=== PATIENT | female | born 1965 | race Caucasian/White ===

== ENCOUNTER 2018-07-11 08:37 | Outpatient (CLI) | payer BC, OTHER ==
[2018-07-11] MEDS ORDERED: IOPAMIDOL-300 100 ML VIAL ONE (08:40)
[2018-07-11 10:59] LABS: CREATININE 0.6 mg/dL (0.4-1.0)
[2018-07-11] MEDS ORDERED: IOPAMIDOL-300 100 ML VIAL IVP ONE (11:43)
--- NOTE | 2018-07-11 14:44 | CT Report ---
Reason: RENAL COLIC Procedure Date: 07/11/2018 Accession Number: [id number] / [id number] Procedure: CT - IVP CPT Code: FULL RESULT: EXAM: CT ABDOMEN AND PELVIS WITHOUT AND WITH CONTRAST (CT IVP) EXAM DATE: 07/11/2018 11:39 AM. CLINICAL HISTORY: RENAL COLIC. COMPARISONS: None. TECHNIQUE: Routine helical imaging was performed through the kidneys, ureters and bladder in the precontrast, postcontrast and delayed phase. IV Contrast: Isovue 300, 100 mL. Reconstructions: Coronal and sagittal. In accordance with CT protocol optimization, one or more of the following dose reduction techniques were utilized for this exam: automated exposure control, adjustment of mA and/or KV based on patient size, or use of iterative reconstructive technique. FINDINGS: Lung Bases: Unremarkable. Right Kidney/Ureter: No stones, hydronephrosis, or masses. Left Kidney/Ureter: No stones, hydronephrosis, or masses. Other Solid Organs: The liver, spleen, pancreas, gallbladder, and adrenal glands are unremarkable.The bile ducts are unremarkable. Peritoneal Cavity/Bowel: No free fluid, free air or adenopathy. No masses. No evidence for small bowel obstruction. Normal appearing appendix. Colonic diverticulosis without evidence for acute diverticulitis. Pelvic Organs: No bladder stones, obstruction or masses. The visualized pelvic organs are unremarkable. Vasculature: Normal. Bones: Normal. Other: None. IMPRESSION: Normal CT IVP. No urinary tract masses, stones or obstruction. RADIA
== END 2018-07-11 08:38 | disposition home or self-care (01) ==
LOC: DI 08:37
PROVIDERS: ATTEND Family Medicine
DX: N23 Unspecified renal colic (principal)
CPT/HCPCS: 36415; 74178; 82565; Q9967

== ENCOUNTER 2018-09-11 07:58 | Outpatient (CLI) | payer OTHER ==
--- NOTE | 2018-09-23 10:19 | Mammography Report ---
Reason: SCREENING MAMMO Procedure Date: 09/11/2018 Accession Number: [id number] / [id number] Procedure: JOSE G - Screening Mammo w/Guillaume CPT Code: FULL RESULT: EXAM: Screening Mammo w/Guillaume DATE: 09/11/2018 8:51 AM CLINICAL HISTORY: 53 year-old nulliparous female with history of early menses presents for screening. TECHNIQUE: Bilateral CC and MLO views were obtained. COMPARISON: 09/26/2014. FINDINGS: The breasts demonstrate scattered fibroglandular densities bilaterally. An isodense nodule in the upper posterior right breast is stable dating back to 2013, no associated architectural distortion or calcifications, typically benign. No suspicious masses, clustered microcalcifications, or regions of architectural distortion are identified. IMPRESSION: Benign findings RECOMMENDATION: Routine annual screening unless otherwise clinically indicated. BIRADS CATEGORY 2: Benign findings STANDARD QUALIFYING STATEMENTS: 1. This examination was not reviewed with the aid of Computer-Aided Detection (CAD). 2. A negative or benign imaging report should not delay biopsy if clinically suspicious findings are present. Consider surgical consultation if warranted. More than 5% of cancers are not identified by imaging. 3. Dense breasts may obscure an underlying neoplasm. 4. This examination was reviewed with the aid of 3D breast imaging (tomosynthesis).
== END 2018-09-11 07:59 | disposition home or self-care (01) ==
LOC: DI 07:58
DX: Z12.31 Encounter for screening mammogram for malignant neoplasm of breast (principal)
CPT/HCPCS: 77063; 77067

== ENCOUNTER 2018-11-23 10:05 | Emergency (ER) | payer OTHER ==
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
[2018-11-23 11:16] LABS: BASOPHILS # (AUTO) 0.1 10^3/uL (0.0-0.1); BASOPHILS % (AUTO) 1.2 %; EOSINOPHILS # (AUTO) 0.1 10^3/uL (0.0-0.7); EOSINOPHILS % (AUTO) 0.9 %; HGB - HEMOGLOBIN 14.2 g/dL (12.0-16.0); LYMPHOCYTES # (AUTO) 2.1 10^3/uL (1.5-3.5); LYMPHOCYTES % (AUTO) 26.3 %; MEAN CORPUSCULAR HEMOGLOBIN 27.5 pg (27.0-31.0); MEAN CORPUSCULAR HGB CONC 33.8 g/dL (32.0-36.0); MEAN CORPUSCULAR VOLUME 81.4 fL (81.0-99.0); MEAN PLATELET VOLUME 8.3 fL (7.9-10.8); MONOCYTES # (AUTO) 0.5 10^3/uL (0.0-1.0); MONOCYTES % (AUTO) 6.3 %; NEUTROPHILS # (AUTO) 5.2 10^3/uL (1.5-6.6); NEUTROPHILS % (AUTO) 65.3 %; PLT - PLATELET COUNT 286 10^3/uL (130-450); RED BLOOD COUNT 5.18 10^6/uL (4.20-5.40); RED CELL DISTRIBUTION WIDTH 16.8 % (12.0-15.0)
[2018-11-23 11:21] LABS: BILIRUBIN,URINE NEGATIVE (NEGATIVE); GLUCOSE, URINE (UA) NEGATIVE (NEGATIVE); KETONES,URINE (UA) NEGATIVE (NEGATIVE); LEUKOCYTE ESTERASE, URINE NEGATIVE (NEGATIVE); NITRITE,URINE NEGATIVE (NEGATIVE); OCCULT BLOOD,URINE TRACE-INTA (NEGATIVE); PROTEIN,URINE NEGATIVE (NEGATIVE); UROBILINOGEN,URINE 0.2 (NORMAL) E.U./dL (NORMAL)
[2018-11-23 11:26] LABS: CLARITY,URINE CLEAR (CLEAR)
[2018-11-23 11:29] LABS: ALBUMIN 4.2 g/dL (3.2-5.5); ALBUMIN/GLOBULIN RATIO 1.4 (1.0-2.2); BILIRUBIN,TOTAL 0.5 mg/dL (0.2-1.0); CALCIUM 9.2 mg/dL (8.5-10.3); CREATININE 0.7 mg/dL (0.4-1.0); TOTAL PROTEIN 7.3 g/dL (6.7-8.2)
--- NOTE | 2018-11-23 11:48 | CT Report ---
Reason: vision changes right hemicranial pain Procedure Date: 11/23/2018 Accession Number: [id number] / [id number] Procedure: CT - Head W/O CPT Code: FULL RESULT: EXAM: CT HEAD EXAM DATE: 11/23/2018 11:34 AM. CLINICAL HISTORY: Vision changes right hemicranial pain. COMPARISON: None. TECHNIQUE: Multiaxial CT images were obtained from the foramen magnum to the vertex. Reformats: Sagittal and coronal. IV contrast: None. In accordance with CT protocol optimization, one or more of the following dose reduction techniques were utilized for this exam: automated exposure control, adjustment of mA and/or KV based on patient size, or use of iterative reconstructive technique. FINDINGS: Parenchyma: No intraparenchymal hemorrhage. No evidence of mass, midline shift. Tejeda-white differentiation is distinct. Extraaxial Spaces: Normal for age. No subdural or epidural collections identified. Ventricles: Normal in size and position. Sinuses and Orbits: Imaged paranasal sinuses, orbits, and mastoids show no significant abnormality. Bones: No evidence of fracture or calvarial defect. Other: None. IMPRESSION: No acute intracranial abnormality. RADIA
[2018-11-23 12:40] VITALS: BP 136/87
== END 2018-11-23 13:05 | disposition home or self-care (01) ==
LOC: ED 10:05
DX: H15.102 Unspecified episcleritis, left eye (principal); F43.9 Reaction to severe stress, unspecified; F41.9 Anxiety disorder, unspecified; I10 Essential (primary) hypertension
CPT/HCPCS: 36415; 70450; 80053; 81001; 81003; 83690; 85025; 87086; 99283

== ENCOUNTER 2018-12-27 11:48 | Outpatient (CLI) | payer BC, OTHER ==
--- NOTE | 2018-12-28 15:18 | Ultrasound Report ---
Reason: NON-TOXIC GOITER Procedure Date: 12/27/2018 Accession Number: [id number] / [id number] Procedure: US - Head or Neck Soft Tissue CPT Code: FULL RESULT: EXAM: THYROID ULTRASOUND EXAM DATE: 12/27/2018 12:55 PM. CLINICAL HISTORY: Nontoxic goiter COMPARISON: Outside report dated 01/19/2018; no images available for review. TECHNIQUE: Real time sonographic imaging of the thyroid was performed by the ladies attendant. Multiple public relations representative static images were saved for review. FINDINGS: THYROID GLAND: Right Lobe: 5.5 x 2.4 x 2.9 cm, volume 20.0 cc. Heterogeneous background echotexture. Right Lobe Nodules: 1. Predominately solid isoechoic nodule with small cystic spaces with small circumscribed exophytic component extending inferomedially, midportion, 2.7 x 1.8 x 2.2 cm (previously 2.5 x 1.8 x 2.2 cm per report). ROSA M high suspicion sonographic pattern due to extrathyroidal extension. 2. Spongiform nodule, inferior pole, 0.8 x 0.5 x 0.7 cm. ROSA M very low suspicion sonographic pattern. Left Lobe: 5.5 x 2.0 x 2.5 cm, volume 14.4 cc. Heterogeneous parenchymal echotexture. Left Lobe Nodules: 1. Cystic with eccentric solid component, 1.0 x 0.6 x 0.6 cm. ROSA M low suspicion sonographic pattern. 2. Predominantly solid isoechoic nodule with small cystic spaces, inferior pole, 2.0 x 1.3 x 1.5 cm. ROSA M low suspicion sonographic pattern. Isthmus: 0.4 cm AP. Isthmic Nodules: Heterogeneous isoechoic/hypoechoic solid nodule, left isthmus, 1.0 x 0.4 x 0.7 cm. LYMPH NODES: No adenopathy demonstrated in the central or lateral compartment. OTHER: None. IMPRESSION: Enlarged multinodular goiter, as detailed above. The dominant 2.7 cm nodule in the right thyroid lobe and the dominant 2.0 cm nodule in the left thyroid lobe meet criteria for tissue sampling with FNA. Per provided notes, the patient has previously undergone FNA of the dominant right-sided nodule; it is unclear which left-sided nodule has previously undergone FNA. Management recommendations are based on 2015 [place] [employer] Management Guidelines for Adult Patients with Thyroid Nodules and Differentiated Thyroid Cancer. RADIA
== END 2018-12-27 11:49 | disposition home or self-care (01) ==
LOC: DI 11:48
PROVIDERS: ATTEND Family Medicine
DX: E04.2 Nontoxic multinodular goiter (principal)
CPT/HCPCS: 76536

== ENCOUNTER 2019-12-16 08:12 | Outpatient (CLI) | payer OTHER ==
--- NOTE | 2019-12-21 11:10 | Mammography Report ---
Reason: SCREENING MAMMO Procedure Date: 12/16/2019 Accession Number: [id number] / [id number] Procedure: JOSE G - Screening Mammo w/Guillaume CPT Code: Final Report FULL RESULT: EXAM: Screening Mammo w/Guillaume DATE: 12/16/2019 8:47 AM CLINICAL HISTORY: Screening encounter. History of nulliparity. History of early menses. TECHNIQUE: (B) - Bilateral CC and MLO views were obtained. COMPARISON: 09/11/2018 through 09/26/2014. PARENCHYMAL PATTERN: (A) - The breast(s) demonstrate(s) scattered fibroglandular densities. FINDINGS: There are no suspicious masses, calcifications, or areas of distortion. IMPRESSION: Negative examination. BI-RADS category 1. RECOMMENDATION: (ANNUAL) - Recommend routine annual screening mammography. BI-RADS CATEGORY: (1) - Negative. STANDARD QUALIFYING STATEMENTS: 1. This examination was not reviewed with the aid of Computer-Aided Detection (CAD). 2. A negative or benign imaging report should not preclude biopsy if clinically suspicious findings are present. 3. Dense breasts may obscure an underlying neoplasm. 4. This examination was reviewed with the aid of 3D breast imaging (tomosynthesis).
== END 2019-12-16 08:13 | disposition home or self-care (01) ==
LOC: DI 08:12
DX: Z12.31 Encounter for screening mammogram for malignant neoplasm of breast (principal)
CPT/HCPCS: 77063; 77067

== ENCOUNTER 2020-10-10 12:49 | Outpatient (CLI) | payer OTHER ==
--- NOTE | 2020-10-10 15:47 | MRI Report ---
PROCEDURE: Brain W/O INDICATIONS: HEADACHE, RT SHOULDER PAIN TECHNIQUE: Noncontrast axial T1 spin echo, axial T2 fast spin echo, sagittal and axial FLAIR, coronal T2 fast sp in echo, axial gradient echo, axial diffusion and ADC through the brain. COMPARISON: None. FINDINGS: Image quality: Excellent. CSF Spaces: Basal cisterns are patent. No extra-axial fluid collections. Ventricles are normal in size and shape. Brain: No intracranial masses or hemorrhage. Tejeda/white matter interface is normal. Brainstem appe ars normal. Diffusion-weighted images demonstrate no acute ischemic insult. No chronic ischemic ins ults. Normal intravascular flow voids are present. Skull and face: Calvarium has normal marrow signal. Orbits appear normal. Sinuses: Sinuses and mastoids are clear. IMPRESSION: Negative brain MRI. No explanation for headache. Reviewed by: Madiha Mercedes MD on 10/10/2020 3:46 PM PST Approved by: Madiha Mercedes MD on 10/10/2020 3:46 PM PST Station ID: [id number]
--- NOTE | 2020-10-10 17:10 | MRI Report ---
PROCEDURE: Shoulder RT W/O INDICATIONS: HEADACHE, RT SHOULDER PAIN TECHNIQUE: Noncontrast oblique coronal T2 fast spin echo with fat saturation, oblique sagittal T1 spin echo and T2 fast spin echo with fat saturation, axial T1 spin echo and T2 fast spin echo with fat saturation t hrough the shoulder. COMPARISON: None. FINDINGS: Image quality: Excellent. Rotator cuff: Supraspinatus tendinopathy with low-grade articular and bursal surface fraying. Infraspinatus and ter es minor tendons appear intact. Subscapularis appears intact. No atrophy of the rotator cuff muscles. Bones and bursae: No bone marrow contusions or fractures. Mild acromioclavicular joint degeneration. The acromion demonstrates conventional anatomy, without an os acromiale. Mild subacromial/subdeltoid bursal fluid is present. Capsule and soft tissues: Labrum: Posterior superior labral tear is seen. This finding chronic and there is associated adjacent segmental glenoid rim sclerosis and spurring. The long head of the biceps tendon demonstrates normal location and morphology. The rotator interval appears normal, without fibrosis. The coracohumeral ligament is normal in thickness. IMPRESSION: Supraspinatus tendinopathy with low-grade articular and bursal surface fraying. Adjacent mild subacro mial-subdeltoid bursitis Chronic posterosuperior labral tear Reviewed by: Yan Maria MD on 10/10/2020 5:08 PM PST Approved by: Yan Maria MD on 10/10/2020 5:08 PM PST Station ID: [id number]
== END 2020-10-10 12:50 | disposition home or self-care (01) ==
LOC: DI 12:49
PROVIDERS: ATTEND Family Medicine
DX: S43.491A Other sprain of right shoulder joint, initial encounter (principal); M75.51 Bursitis of right shoulder; M75.81 Other shoulder lesions, right shoulder; R51.9 Headache, unspecified
CPT/HCPCS: 70551

== ENCOUNTER 2021-01-03 15:28 | Outpatient (CLI) | payer OTHER ==
--- NOTE | 2021-01-04 07:51 | Mammography Report ---
BILATERAL DIGITAL SCREENING MAMMOGRAM 3D/2D: 01/03/2021 CLINICAL: Routine screening. Comparison is made to exams dated: 12/16/2019 mammogram, 09/11/2018 mammogram - [facility], and 10/05/2015 mammogram - [facility]. There are scattered fibroglandular [place] ents in both breasts. No significant masses, calcifications, or other findings are seen in either breast. There has been no significant interval change. IMPRESSION: NEGATIVE There is no mammographic evidence of malignancy. A 1 year screening mammogram is recommended. This exam was interpreted at Station ID: [id number]. NOTE: For mammograms, a report in lay terms will be sent to the patient. Approximately 15% of breast malignancies will not be visualized mammographically. In the management of a palpable breast mass, a negative mammogram must not discourage biopsy of a clinically suspicious lesion. Electronically Signed By: Vanessa moon/penrad:01/03/2021 16:59:47 ACR BI-RADS Category 1: Negative 3341F PARENCHYMAL PATTERN: (A) - The breast(s) demonstrate(s) scattered fibroglandular densities. BI-RADS CATEGORY: (1) - 1 RECOMMENDATION: (ANNUAL) - Recommend routine annual screening mammography. [id number] 1 year screening LATERALITY: (B)
== END 2021-01-03 15:29 | disposition home or self-care (01) ==
LOC: DI 15:28
DX: Z12.31 Encounter for screening mammogram for malignant neoplasm of breast (principal)

== ENCOUNTER 2022-07-05 10:11 | Outpatient (CLI) | payer OTHER ==
[2022-07-05 11:04] VITALS: BP 120/81
--- NOTE | 2022-07-05 11:04 | SLEEP CARE CONSULTATION ---
Information from patient questionnaire entered by Laurent Crooks. I have reviewed and concur with the information entered by Laurent Crooks. This document represents the service I personally performed and the decisions made by me, Camille Stiles ARNP. History of Present Illness Service Date and Time: 07/05/2022 1011 Reason for Visit: New patient Chief Complaint: reports: Insomnia, Unrefreshed sleep, Snoring, Observed pauses in breathing, Fatigue, Frequent awakenings at night, Other (GASPING FOR AIR/PAIN) Date of Onset: ONE YEAR AGO Usual bedtime: 10PM Time it takes to fall asleep: AT LEAST 30 MINUTES WITHOUT AMBIEN Snores at night: Yes Observed to quit breathing while asleep: Yes Number of times waking at night: 3 OR MORE Reasons for waking at night: reports: Choking (gagging), Gasping for air, Pain (in back), Bathroom, Other (UNKNOWN REASON) Toss, Turn, or Twitch while sleeping: Yes Recalls having dreams: Yes Usually gets out of bed at: 330-430AM Feels refreshed in the morning: No Morning headache: Yes (3-4 days week; USUALLY RESOLVES AFTER A CUP OF DECAFF COFFEE/BP) Sleepy or fatigued during the day: Yes Ever fallen asleep while driving: No Takes day naps: No Dreams during day naps: No Prior sleep studies: No Additional HPI information: I had the pleasure of seeing [employer] today regarding the possibility of her having a sleep disorder. Her current complaints are insomnia, unrefreshed sleep, snoring, observed pauses in breathing, fatigue, frequent night awakenings and gasping for air\\pain. Patient states she has noticed over the last year that she has had a drop in her oxygen when she is sleeping at night. Her heart rate will range from 55-180. She is getting this information from an peter on her phone that is connected to a watch that is tracking this information. She states that the oxygen level can get down to the 70s. She states she wakes up frequently gasping for air. Her mother and have told her she will make choking or gagging sounds in her sleep. She has woke herself up with this choking sound. Patient states in February she twisted her back. She really started having pain in April with sciatica. She recently had an epidural injection to help with her pain. She has to sleep in her recliner or she will wake up in pain and have to use ice packs. This has definitely been interrupting her sleep and more recent months. Patient has also woken up with he adaches and high blood pressure. She states her father in his sleep and she is afraid of this happening to her. - Parasomnia Symptoms Ever been unable to move upon waking from sleep: No Walks in sleep: No Talks in sleep: No Ever acted out dreams in sleep: Yes (30 YEARS AGO) Ever felt weak in the knees when startled or emotional: Yes (very "jumpy, anxious person") Bothered by creepy, crawly, restless sensations in legs: No Problems with memory or concentration: No Subjective Initial Roberts Sleepiness Scale score: 2 Past Medical History Past Medical History: reports: Hypertension, Claustrophobia, Diabetes (Type II, preDM), Fibromyalgia, Anxiety, GERD, Other (BULGING DISC/SCIATICA, HIGH CHOLESTEROL, INSOMNIA) Social History The patient's occupation is a [employer]. Patient is and lives in [place]. Have you smoked in the past 12 months: No Cigarettes per day (20/pack): 20 Years of smokin Quit date: AUG 2019 Smoking Pack Years: 40.0 Alcohol use: No Caffeine use: Yes Caffeine amount and frequency: 1 ICED TEA PER DAY Family History Family history of sleep disordered breathing: Yes Family Hx Sleep Apnea: Mother: Snoring, Sibling: Snoring, Sleep apnea - Treated Allergies and Home Medications Known drug allergies: Yes Drug allergies reviewed: Yes Home medication list reviewed: Yes Allergy and home medication list: Allergies No Known Drug Allergies Allergy (Verified 11/23/18 10:18) Medications: LOSARTAN 25 MG ONCE DAILY HCTZ 12.5MG ONCE DAILY XANAX 0.5MG 3 TIMES DAILY METFORMIN HCL 500MG ONCE DAILY NEXIUM 40MG ONCE DAILY AMBIEN 5MG ONCE DAILY VICODIN 10-325MG 3 TIMES DAILY Vitamin D3 daily Magnesium 100 mg, daily Review of Systems Weight gain over past 5 years: 30 POUNDS Weight loss over past 5 years: 30 POUNDS Cardiovascular: reports: high blood pressure, irregular heart rate or pulse Gastrointestinal: reports: heartburn Urinary: reports: frequency Neurological: reports: headaches. denies: head trauma Psychiatric: reports: anxiety, claustrophobia Ear/Nose/Throat: reports: nasal congestion Endocrine: reports: history of goiter Musculoskeletal: reports: joint pain, neck pain, back pain, joint swelling, muscle pain or cramping, other (FIBROMYALGIA) Physical Exam Vital signs obtained and entered by: SASCHA, COW TESTER Blood Pressure: 120/81 (LEFT) Cuff size: wrist Heart Rate: 107 O2 Saturation: 96 Height: 5 ft 7 in Weight: 189 lb Body Mass Index: 29.6 BMI Classification: Overweight Neck circumference: 15 (inches) Nostrils: patent to airflow Mouth and throat: narrow oropharynx Soft palate: long Hard palate: normal Uvula: normal Uvula visualization: 25% Mallampati Class III Tongue: normal in size Tonsils: small Neck: normal w/o lymphadenopathy or thyromegaly Heart: regular rate and rhythm Lungs: clear bilaterally Impression and Plan 1. Suspected Obstructive Sleep Apnea-Hypopnea Syndrome, as suggested by a history of loud and irregular snoring, observed cessation of breath while asleep, gasping or choking in sleep, morning headache, frequent awakening during the night, unrefreshed sleep, cognitive impairment, and excessive daytime sleepiness. Narrow oropharynx and obesity are common predisposing factors for obstructive sleep apnea-hypopnea syndrome. I recommend proceeding to polysomnography to confirm the diagnosis and to assess severity. If the patient has significant sleep disordered breathing, a manual CPAP titration study will also be performed to find the optimal treatment pressure. I informed the patient of what the sleep studies involve and after some discussion, obtained agreement to proceed. The pathophysiology of obstructive sleep apnea-hypopnea syndrome was discussed with the patient and health risks of cardiovascular and cerebrovascular disease if not treated. Risks of drowsy driving discussed in detail and patient advised to avoid long distance driving and to bone puller at the first sign of drowsiness. Patient agreed to plan. * Schedule polysomnography * Avoid long distance driving or driving when feeling sleepy. * Avoid alcohol, sedative and muscle relaxant around bedtime. * Attempt to lose weight. * Review instructions provided by trained office staff on how to prepare for the sleep study. * Return for follow-up after sleep study completed. Counseling Topics: Weight loss health impact Visit Type: In Office Time Spent with Patient (minutes): 36 Provider Statement: I spent 100% of the Face to Face Visit with the patient with greater than 50% spent counseling the patient and coordination of care.
== END 2022-07-05 10:12 | disposition home or self-care (01) ==
LOC: SC 10:11
PROVIDERS: ATTEND Nurse Practitioner Family
DX: R06.83 Snoring (principal); G47.8 Other sleep disorders; R06.81 Apnea, not elsewhere classified; R51.9 Headache, unspecified; R53.83 Other fatigue; I10 Essential (primary) hypertension; E66.3 Overweight; Z68.29 Body mass index [BMI] 29.0-29.9, adult; Z87.891 Personal history of nicotine dependence
CPT/HCPCS: 99203; 99212

== ENCOUNTER 2022-07-16 20:23 | Outpatient (CLI) | payer OTHER | END 2022-07-16 20:24 | disposition home or self-care (01) | LOC: SC 20:23 | PROVIDERS: ATTEND Nurse Practitioner Family | DX: R09.02 Hypoxemia (principal) | CPT/HCPCS: 95810 ==

== ENCOUNTER 2022-07-26 13:43 | Outpatient (CLI) | payer OTHER ==
[2022-07-26 14:23] VITALS: BP 128/84
--- NOTE | 2022-07-26 14:23 | SLEEP CARE CONSULTATION ---
Information from patient questionnaire entered by Laurent Crooks. I have reviewed and concur with the information entered by Laurent Crooks. This document represents the service I personally performed and the decisions made by , Camille Stiles ARNP. History of Present Illness Service Date and Time: 07/26/2022 1343 Accompanied by: Spouse Initial Smiley Sleepiness Scale score: 2 Current Smiley Sleepiness Scale score: 3 (07/26/22) Additional HPI information: [employer] returns with spouse for follow up and results of the recently performed polysomnography. The patient was informed of the following findings: No significant sleep disordered breathing with an average AHI of 3.4 and simon oxygen saturation 71%. They had a low average oxygen saturation of 88%, mild to moderate hypoxemia. I explained the pathophysiology behind obstructive sleep apnea. Patient does not have sleep apnea and was advised how weight gain could increase the risk of developing sleep apnea in the future. I strongly encouraged the patient to lose weight. Patient has light and infrequent snoring. Snoring can be reduced by weight loss. Weight loss is best achieved with diet consult. Patient instructed to contact PCP for referral. Snoring can also be treated with an oral appliance from a dentist. Advised to check insurance coverage. In addition, an ENT evaluation can be do to see if other treatment is indicated. Patient was cautioned about risks of drowsy driving until sleepiness symptoms resolve. Sleep Study - Results Type of Sleep Study: Polysomnography (DONE 07/16/22) Prior sleep studies: No Polysomnography/Home Sleep Study results: IMPRESSION: The quality of the study is good. The patient had reduced sleep efficiency due to three prolonged awakenings during the night. The sleep architecture was abnormal for sleep fragmentation and lack of slow wave sleep (N3). Respiratory monitoring showed no significant sleep disordered breathing (AHI = 3.4). There was moderate hypoxia (average oxygen saturation of 88% and simon oxygen saturation of 71%). The patient slept mostly supine (supine AHI = 3.5; non-supine = 0.00). Snore was infrequent and light in intensity. There was no significant periodic leg movement of sleep. Cardiac rhythm was normal sinus rhythm without significant arrhythmia. No abnormal behavior (parasomnia) observed during the night. CONCLUSIONS and RECOMMENDATIONS: 1. Hypoxemia ICD R09.02, mild, due to low baseline oxygen saturation. Further evaluation of hypoxemia is recommended. Consider underlying cardiopulmonary disorders. Oxygen therapy appears indicated. Clinical correlation advised. Allergies and Home Medications Home medication list reviewed: Yes (no changes) Allergy and home medication list: Allergies amitriptyline [From Elavil] Adverse Reaction (Verified 07/04/22 18:11) Anxiety aripiprazole [From Abilify] Adverse Reaction (Verified 07/04/22 18:11) Anxiety atorvastatin [From Lipitor] Adverse Reaction (Verified 07/04/22 18:11) Unknown bupropion [From Wellbutrin] Adverse Reaction (Verified 07/04/22 18:11) Anxiety duloxetine [From Cymbalta] Adverse Reaction (Verified 07/04/22 18:11) Anxiety epinephrine Adverse Reaction (Verified 07/04/22 18:11) Anxiety fluoxetine [From Prozac] Adverse Reaction (Verified 07/04/22 18:11) Anxiety gabapentin Adverse Reaction (Verified 07/04/22 18:11) Unknown nabumetone [From Relafen] Adverse Reaction (Verified 07/04/22 18:11) Unknown paroxetine [From Paxil] Adverse Reaction (Verified 07/04/22 18:11) Anxiety prednisone Adverse Reaction (Verified 07/04/22 18:11) Anxiety pregabalin [From Lyrica] Adverse Reaction (Verified 07/04/22 18:11) Unknown quetiapine [From Seroquel] Adverse Reaction (Verified 07/04/22 18:11) Anxiety rosuvastatin [From Crestor] Adverse Reaction (Verified 07/04/22 18:11) Unknown sertraline Adverse Reaction (Verified 07/04/22 18:11) Anxiety tizanidine Adverse Reaction (Verified 07/04/22 18:11) Unknown vortioxetine [From Trintellix] Adverse Reaction (Verified 07/04/22 18:11) Anxiety Review of Systems Review of systems same as previous: Yes (no changes) Physical Exam Vital signs obtained and entered by: TAVARES CAICEDO Blood Pressure: 128/84 (left wrist ) Cuff size: wrist Heart Rate: 87 O2 Saturation: 96 Height: 5 ft 7 in Weight: 191 lb Body Mass Index: 29.9 BMI Classification: Overweight Impression and Plan 1. Hypoxemia, mild to moderate, with a simon oxygen saturation of 77% and 250.0 minutes spent under 90%. Her baseline oxygen saturation was low normal with an average oxygen saturation of 88%. Patient was advised that further evaluation of hypoxemia is recommended. Further clinical correlation with follow up by PCP is advised. * Follow up for hypoxemia with PCP * Attempt to lose weight * Avoid alcohol consumption near bedtime * The patient is cautioned about driving until sleepiness is completely resolved. * Return as needed for follow up. Counseling Topics: Weight loss health impact Visit Type: In Office Other Participants: Spouse/Significant Other Time Spent with Patient (minutes): 22 Provider Statement: I spent 100% of the Face to Face Visit with the patient with greater than 50% spent counseling the patient and coordination of care.
== END 2022-07-26 13:44 | disposition home or self-care (01) ==
LOC: SC 13:43
PROVIDERS: ATTEND Nurse Practitioner Family
DX: R09.02 Hypoxemia (principal); E66.3 Overweight; Z68.29 Body mass index [BMI] 29.0-29.9, adult
CPT/HCPCS: 99212; 99213